=== PATIENT | female | born 1995 | race Caucasian/White ===

== ENCOUNTER 2016-05-04 05:17 | Day surgery (SDC) | payer OTHER ==
[2016-05-03 13:24] LABS: HEMATOCRIT 40.1 % (36.0-48.0); HEMOGLOBIN 13.2 g/dL (12-16); MCHC 32.9 g/dL (31.0-37.0); MCV 91.1 fL (80.0-100.0); MEAN PLATELET VOLUME 10.4 fL (7.4-10.4); RBC 4.4 10x6/uL (4.00-5.40); RDW 13.1 % (11.5-14.5); WBC 7.4 10x3/uL (4.8-10.8)
[~2016-05-04] VITALS: Ht 167.6 cm; Wt 54.4 kg
[~2016-05-04 05:17] MED LIST: KLONOPIN0.5 MG PO; LAMICTAL200 MG PO; MONONESSA1 TAB PO; VYVANSE60 MG PO
[2016-05-04 06:14] VITALS: BP 121/71; Ht 167.6 cm; Wt 54.4 kg
[2016-05-04 06:20] LABS: HCG URINE NEGATIVE (NEGATIVE)
[2016-05-04] MEDS ORDERED: HYDROCODONE-APA1 TAB PO (10:28)
--- NOTE | 2016-05-04 12:11 | NUR ---
1145 IV DC WITH CATHER TIP INTACT
--- NOTE | 2016-05-08 18:23 | OP ---
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 PROCEDURES: 1. Arthroscopic Bankart repair of the right shoulder. 2. Arthroscopic capsulorrhaphy. 3. Arthroscopic loose body removal of the right shoulder. SURGEON: Kelley Espinal MD ANESTHESIA: General. INTRAOPERATIVE COMPLICATIONS: None. SUMMARY OF PATHOLOGIC FINDINGS: The patient had a combination of bony Bankart, mostly Hill-Sachs with the labrum peeled from the 1 o'clock to the 5 o'clock position down on the neck. Also found in the anterior inferior aspect of the glenoid neck was a loose body that was removed as well. No randal rotator cuff tearing was noted, although there were signs of rotator cuff injury and hemorrhage from multiple dislocations. OPERATIVE SUMMARY IN DETAIL: After obtaining the appropriate preoperative orthopedic surgery consents as well as anesthetic consultation, evaluation and clearance, the patient was brought to the operating room and placed on the operating room table in supine position. After adequate general laryngeal mask airway was administered, the patient was placed in left lateral decubitus position. All pressure points were well padded to include down leg peroneal pad as well as axillary roll. The patient was held firmly to the operating room table using the vacuum pack suction system. Right upper extremity and shoulder were then prepped and draped in a routine sterile fashion. The arm was held in the Arthrex traction boom at 30 degrees of forward flexion, 30 degrees of abduction with 7 pounds of traction laterally. Generally, 10 pounds of traction were used; however, this resulted in the inferior dislocation on this patient, so that the traction was taken down to 7 pounds and axillary bolster was utilized. This resulted in good stabilization and appropriate working space. Arthroscopy was established in the glenohumeral joint from a posterior portal. Immediately, drive thru was positive and the patient's findings were noted. Intraoperative photos were taken at this point. Anterior portal was established in the anterior safe triangle. Further diagnostic arthroscopy showed the rotator cuff findings as noted. The biceps tendon was in overall good position without any subluxation Arthrex shaver was then utilized to debride the anterior aspect of the glenoid neck from approximately the 5 o'clock to the 1 o'clock position for reapproximation of the labrum and capsular construct. Arthroscopic percutaneous 2.9 suture anchor system was utilized with the first suture anchor at the 5 o'clock position using a FiberLoop and then suture anchors were placed at the 4 o'clock, 3 o'clock, 2 o'clock and 1 o'clock position using Arthrex labral tape. One of the Arthrex PushLocks had in it a capsular plication using OPERATIVE REPORT [id number] LAYA MONROE a standard FiberWire passed multiple times and tied to complete capsulorrhaphy. This was then anchored anteriorly into one of the above-mentioned suture anchors. Good anterior labral reconstruction was achieved along with substantial capsulorrhaphy and drive thru was then no longer positive. In fact, it was difficult to view the inferior recess as it was very easy prior to the stabilization. Having completed this, arthroscopy portals were closed in routine interrupted fashion using 4-0 Prolene. Sterile dressings were applied. The patient was awakened, taken to recovery room in stable condition. All final needle and sponge counts were correct. TRANSINT:[id number] Voice Confirmation ID: [id number] DOCUMENT ID: [id number] KYLIE MORALEZ, KELLEY LLANOS at 1823 CC: [id number] DICTATION DATE: 05/04/16 1026 QUALITY ASSURANCE TECHNICIAN: 05/04/16 1120 [facility] 05/04/16 [place] [id number] [place] [id number]
== END 2016-05-04 12:10 | disposition home or self-care (01) ==
LOC: D.OPS 05:17 → D.PAN 07:30 → D.OPS 07:30 → D.PAN 08:15 → D.OPS 08:15
PROVIDERS: Anesthesiology; Orthopaedic Surgery
DX: M25.311 Other instability, right shoulder (principal); S42.291A Other displaced fracture of upper end of right humerus, initial encounter for closed fracture; M24.411 Recurrent dislocation, right shoulder

== ENCOUNTER 2016-11-27 05:13 | Day surgery (SDC) | payer OTHER ==
[2016-11-24 16:32] LABS: HEMATOCRIT 36.5 % (36.0-48.0); HEMOGLOBIN 12.1 g/dL (12-16); MCH 29.2 pg (26.0-34.0); MCHC 33.2 g/dL (31.0-37.0); MEAN PLATELET VOLUME 9.7 fL (7.4-10.4); RBC 4.15 10x6/uL (4.00-5.40); RDW 13.7 % (11.5-14.5); WBC 5.4 10x3/uL (4.8-10.8)
[~2016-11-27] VITALS: Ht 162.6 cm; Wt 55.8 kg
[~2016-11-27 05:13] MED LIST changes: +BIOTIN5 MG PO; +FOLATE0.4 MG PO; +HYDROCODONE-APA1 TAB PO; +MAG-OX 400 MG400 MG PO
[2016-11-27 06:35] VITALS: BP 127/79; Ht 162.6 cm; Wt 55.8 kg
[2016-11-27 06:44] LABS: HCG URINE NEGATIVE (NEGATIVE)
[2016-11-27] MEDS ORDERED: PERCOCET 10/3251 TA1 PO (10:31)
--- NOTE | 2016-11-30 19:16 | OP ---
PATIENT NAME: LAYA MONROE MEDICAL RECORD: [id number] :95 LOCATION:[facility] ADMISSION DATE: SURGEON: KELLEY ESPINAL MD DATE OF OPERATION: 11/27/2016 PREOPERATIVE DIAGNOSIS: Chronic instability of the left shoulder. POSTOPERATIVE DIAGNOSIS: Chronic instability of the left shoulder. PROCEDURE: Arthroscopic Bankart repair. SURGEON: Kelley Espinal MD. ANESTHESIA: General. INTRAOPERATIVE COMPLICATIONS: None. SUMMARY OF PATHOLOGIC FINDINGS: The patient had a very large ALPSA lesion anterior inferior aspect of the glenoid. Furthermore, she has a very large Hill-Sachs lesion posterior superior aspect of the humeral head. This is almost identical to the findings in the contralateral side and the previous Bankart arthroscopy. OPERATIVE SUMMARY IN DETAIL: After obtaining the appropriate preoperative orthopedic surgery consent as well as anesthetic consultation, evaluation and clearance, the patient was brought to the operating room and placed on the operating table in supine position. After adequate general laryngeal mask airway was administered, the patient was placed in a right lateral decubitus position. All pressure points were well padded to include down leg peroneal pad as well as axillary roll. She was held firmly to the operating room table using the vacuum pack suction system as well along with the belt and strap system. Left upper extremity and shoulder were then prepped and draped in a routine sterile fashion. The arm was held in the Arthrex traction boom at 30 degrees of forward flexion, 30 degrees of abduction with 10 pounds of traction laterally. Arthroscopy was established in the glenohumeral joint from a posterior portal. Anterior portal was established in the anterior safe interval. Diagnostic arthroscopy findings as above were noted. The resector was utilized to debride the anterior aspect of the glenoid for reapproximation of the labrum. The Arthrex percutaneous kit was utilized to get down to the 8 o'clock position and then 9 o'clock and 10 o'clock positions respectively to reapproximate the entire labrum and capsule back to the anterior aspect of the glenoid using 2.9 PushLocks from Arthrex. This resulted in a negative drive-through and a much tighter anterior capsule. Having completed this, arthroscopy portals were closed in routine interrupted fashion using 4-0 Prolene. Sterile dressings were applied. The patient was awakened, taken to recovery room in stable condition. All final needle and sponge counts were correct. TRANSINT:[id number] Voice Confirmation ID: [id number] DOCUMENT ID: [id number] OPERATIVE REPORT [id number] LAYA MONROE MD, KELLEY LLANOS at 1916 CC: [id number] DICTATION DATE: 11/27/16 1033 NET MAKING SUPERVISOR: 11/27/16 1222 [facility] 11/27/16 [place] [id number] [place] [id number]
== END 2016-11-27 12:43 | disposition home or self-care (01) ==
LOC: D.OPS 05:13 → D.PAN 07:30 → D.OPS 09:00 → D.PAN 09:00 → D.OPS 12:43
PROVIDERS: Anesthesiology; Orthopaedic Surgery
DX: M25.312 Other instability, left shoulder (principal); Z01.812 Encounter for preprocedural laboratory examination

== ENCOUNTER → 2017-04-23 12:57 | Outpatient (CLI) | payer OTHER ==
[2016-11-27 06:35] VITALS: BMI 21.1
[~2017-04-23 12:57] MED LIST changes: +CRANBERRY 400 M1 TA1 PO; +DILAUDID4 MG PO; -KLONOPIN0.5 MG PO; +KLONOPIN1 MG PO; +PERCOCET 10/3251 TA1 PO; +VYVANSE70 MG PO
== END | disposition home or self-care (01) ==
LOC: D.MRI 04-16 13:30
DX: M25.312 Other instability, left shoulder (principal)

== ENCOUNTER 2017-05-17 05:21 | Day surgery (SDC) | payer OTHER ==
[2017-05-16 16:15] LABS: HEMATOCRIT 37.3 % (36.0-48.0); HEMOGLOBIN 12.5 g/dL (12-16); MCHC 33.5 g/dL (31.0-37.0); MCV 89.7 fL (80.0-100.0); MEAN PLATELET VOLUME 9.4 fL (7.4-10.4); RBC 4.16 10x6/uL (4.00-5.40); RDW 12.3 % (11.5-14.5); WBC 6.2 10x3/uL (4.8-10.8)
[~2017-05-17] VITALS: Ht 162.6 cm; Wt 52.6 kg
--- NOTE | ~2017-05-17 | OP ---
PATIENT NAME: LAYA MONROE MEDICAL RECORD: [id number] :95 LOCATION:D.OPS ADMISSION DATE: SURGEON: KELLEY ESPINAL MD DATE OF OPERATION: 05/17/2017 PREOPERATIVE DIAGNOSES: Recurrent instability of the left shoulder with Bankart lesion and Hill-Sachs lesion. POSTOPERATIVE DIAGNOSES: Recurrent instability of the left shoulder with Bankart lesion and Hill-Sachs lesion. PROCEDURES: 1. Open Bankart repair with capsular shift, left shoulder. 2. Remplissage posterior aspect of the left shoulder - rotator cuff repair. SURGEON: Kelley Espinal MD ANESTHESIA: General. INTRAOPERATIVE COMPLICATIONS: None. SUMMARY OF PATHOLOGIC FINDINGS: The patient had a large Hill-Sachs from prior operative intervention. Prior arthroscopic intervention had completely broken down and the patient had complete labral separation with bony loss of approximately 5% to 10%. OPERATIVE SUMMARY IN DETAIL: After obtaining the appropriate preoperative orthopedic surgery consent as well as anesthetic consultation, evaluation and clearance, the patient was brought to the operating room and placed on the operating table in supine position. After general laryngeal mask was administered, the patient was placed in the beach chair position. All pressure points were well padded. She was held firmly to the operating table using the vacuum pack suction system. Left upper extremity and shoulder were prepped and draped in routine sterile fashion. The arm was held in the Trimano arm holding device. Arthroscopy was established in the posterior aspect of the shoulder. Arthroscopic evaluation showed the patient to have bone loss and complete failure of her prior arthroscopic fixation in all 4 anchors. At this point, the decision was made to proceed with open Bankart repair. The patient's Hill-Sachs lesion was identified and it had gotten larger. The decision was made at this point to proceed with Remplissage. Three anchors were placed just off the articular aspect of the rotator cuff after thorough debridement of the area of Hill-Sachs. These were tied in tandem using Arthrex core 75 suture anchors. Unfortunately, the 3.0 suture tacks did not hold the 4.75 SwiveLocks were robust in excellent repair of the Remplissage was achieved using these 3 anchors. Having completed this, the arthroscopy portals were closed including the large arthroscopy portal posterior. Next, the deltopectoral incision was taken down and the cephalic vein was identified and protected throughout the case. Clavipectoral was incised. The deltoid was then retracted laterally using a brown retractor. The subscapularis was gently teased off the capsule and retracted. The capsule was then incised and a Fukuda retractor was then used to hold the humeral head back and the glenoid pathology was clearly demonstrated. The arthroscopic resector was OPERATIVE REPORT [id number] LAYA MONROE utilized to debride the anterior aspect of the glenoid. At this point 4 suture tacks were placed at the 7 o'clock, 8 o'clock, 9 o'clock and 10 o'clock position. They were passed under the labrum and through the capsule, which was held tight and all 4 of these were then tensioned very tightly with the shoulder in a reduced position. The capsule was then tied back in an imbricated [id number] to tighten the patulous inferior capsule. Having completed this, the subscapularis was then slightly advanced reapproximated using two 3.0 PushLocks along the superior and inferior [id number] reapproximation. At this point, the shoulder was stable. Wound was copiously irrigated and closed with 2-0 Vicryl followed by skin will. Sterile dressings were applied. The patient was placed in a shoulder immobilizer, awakened and taken to the recovery room in stable condition. All final needle and sponge counts were correct. TRANSINT:[id number] Voice Confirmation ID: [id number] DOCUMENT ID: [id number] KYLIE MORALEZ, KELLEY LLANOS at 1133 CC: [id number] DICTATION DATE: 05/17/172026 VACUUM BOTTLE ASSEMBLER: 05/17/172214 [facility] 05/17/17 [place] [id number] [place] [address]
[~2017-05-17 05:21] MED LIST changes: -DILAUDID4 MG PO
[2017-05-17 07:37] VITALS: BP 117/79; Ht 162.6 cm; Wt 52.6 kg
[2017-05-17 07:45] LABS: HCG URINE NEGATIVE (NEGATIVE)
[2017-05-17] MEDS ORDERED: DILAUDID4 MG PO (10:38)
== END 2017-05-17 12:45 | disposition home or self-care (01) ==
LOC: D.OPS 05:21 → D.PAN 08:45 → D.OPS 09:00
PROVIDERS: Anesthesiology; Orthopaedic Surgery
DX: M25.312 Other instability, left shoulder (principal); M24.412 Recurrent dislocation, left shoulder; S42.295A Other nondisplaced fracture of upper end of left humerus, initial encounter for closed fracture; X58.XXXA Exposure to other specified factors, initial encounter; Z01.812 Encounter for preprocedural laboratory examination

== ENCOUNTER → 2019-12-09 10:09 | Outpatient (CLI) | payer MEDICAID ==
[2017-05-17 07:37] VITALS: BMI 19.9
[~2019-12-09 10:09] MED LIST changes: +DILAUDID4 MG PO
== END | disposition home or self-care (01) ==
LOC: D.RAD → D.MRI 11:00
PROVIDERS: ATTEND Orthopaedic Surgery
DX: M25.312 Other instability, left shoulder (principal); M54.12 Radiculopathy, cervical region